=== PATIENT | female | born 1940 | race Caucasian/White ===

== ENCOUNTER 2018-07-18 13:23 | Outpatient (CLI) | payer MEDICARE, OTHER | END 2018-07-18 13:24 | disposition home or self-care (01) | LOC: BICRAD 13:23 | PROVIDERS: ATTEND Family Medicine | DX: J44.9 Chronic obstructive pulmonary disease, unspecified (principal) | CPT/HCPCS: 71046 ==

== ENCOUNTER 2019-04-19 14:49 | Outpatient (CLI) | payer MEDICARE, OTHER ==
--- NOTE | 2019-04-19 16:54 | ULT ---
ULTRASOUND RIGHT AXILLA: 04/19/2019 HISTORY: A 78-year-old female with right axillary pain and swelling. FINDINGS: The bulk of the soft tissue enlargement, of which the patient complains, is demonstrated to represent benign tissue. An incidental finding of an approximately 1.5 cm right axillary lymph node with benign fatty hilum an d thin parenchyma. Separate from this, there is an approximately 1.5 x 0.3 cm, thin, flat, hypoechoic structure without shadowing. This appears to be a small fluid collection. Comparison with the contralateral left axilla demonstrates a similar but smaller such lesion in the l eft axilla. IMPRESSION: 1. No evidence of malignancy. 2. The bulk of the right axillary enlargement represents adipose tissue. 3. Incidental finding of two thin slivers of hypoechoic lesions, perhaps tiny fluid collection, with in the bilateral axilla, one on each side, right larger than left, of uncertain etiology and signific ance. 4. If the pain persists or worsens, follow-up ultrasound of the axilla should be considered in three to six months. 5. Unrelated to the above, the patient states that she has not had a screening mammogram in years. Therefore, routine bilateral screening mammogram is recommended (unrelated to the axillary findings). POS: REGGIE
== END 2019-04-19 14:50 | disposition home or self-care (01) ==
LOC: BICULT 14:49
PROVIDERS: ATTEND Family Medicine
DX: M79.89 Other specified soft tissue disorders (principal)
CPT/HCPCS: 76999

== ENCOUNTER 2019-05-08 14:11 | Outpatient (CLI) | payer MEDICARE, OTHER ==
--- NOTE | 2019-05-11 17:06 | MMO ---
Bilateral MAMMO Bilat Screen [facility]. CLINICAL HISTORY: Patient is 78 years old and is seen for screening. The patient has the following family history of breast cancer: mother. The patient has no personal history of cancer. VIEWS: The views performed were: bilateral craniocaudal with tomosynthesis and bilateral mediolateral oblique with tomosynthesis. FILMS COMPARED: The present examination has been compared to prior imaging studies performed at MAMMOGRAM FINDINGS: There are scattered fibroglandular densities. There are no suspicious masses, suspicious calcifications, or new areas of architectural distortion. IMPRESSION: THERE IS NO MAMMOGRAPHIC EVIDENCE OF MALIGNANCY. A ROUTINE FOLLOW-UP MAMMOGRAM IN 1 YEAR IS RECOMMENDED. THE RESULTS OF THIS EXAM WERE SENT TO THE PATIENT. ACR BI-RADS Category 1 - Negative MAMMOGRAPHY NOTE: 1. A negative mammogram report should not delay a biopsy if a dominant of clinically suspicious mass is present. 2. Approximately 10% to 15% of breast cancers are not detected by mammography. 3. Adenosis and dense breasts may obscure an underlying neoplasm.
== END 2019-05-08 14:12 | disposition home or self-care (01) ==
LOC: BICMAMMO 14:11
PROVIDERS: ATTEND Family Medicine
DX: Z12.31 Encounter for screening mammogram for malignant neoplasm of breast (principal); Z80.3 Family history of malignant neoplasm of breast
CPT/HCPCS: 77063; 77067

== ENCOUNTER 2020-05-30 13:22 | Outpatient (CLI) | payer MEDICARE, OTHER ==
[~2020-05-30 13:22] MED LIST: Iopamidol-370 76% 500 ML 1 ML ONE
--- NOTE | 2020-05-30 16:34 | CT ---
CT OF THE NECK 05/30/20 HISTORY: History of left sided neck mass. TECHNIQUE: Axial CT imaging at 3 mm intervals from skull base through lung apices with IV contrast. Coronal and sagittal reformatted imaging obtained. FINDINGS: The imaged skull base appears grossly unremarkable. There is mucosal thickening involving the alveola r recess of the left maxillary sinus. The imaged lung apices demonstrate upper lobe emphysematous change. There is atherosclerotic calcification of the aortic arch and the proximal great vessels. The retroantral fat and the parapharyngeal fat appears clear bilaterally. The parotid glands are unre markable. The area of palpable concern is marked by a needle cap and is in the submandibular region on the left . In this region, the submandibular gland is noted. The left submandibular gland is larger than the r ight measuring 4.8 cm in craniocaudal dimension while the right measures 3.9 cm. There is bilateral i ntraglandular ductal dilation involving the submandibular glands bilaterally, left greater than right . There are 2-3 punctate sialoliths within the submandibular gland on the left. In addition, the subm andibular duct on the left just anterior to the left submandibular gland is slightly enhancing and th ickened. No sialolith is appreciated along the course of the submandibular duct on either side at the level of the floor of mouth. There is atherosclerotic calcification of distal CCA and proximal ICA bilaterally. Tonsillar pillars, epiglottis and pre-epiglottic fat, hyoid bone, thyroid cartilage, cricoid cartilage, and level of gl ottis appear unremarkable. The left lobe of the thyroid gland appears absent. The right lobe is prese nt and heterogeneous with hypodense nodules, which could be better assessed via thyroid ultrasound. N o lymphadenopathy is evident within the neck. The osseous structures demonstrate degenerative change within the mid cervical spine with multilevel disc space narrowing. No worrisome lytic or blastic bon e lesion. IMPRESSION: 1. In the area of palpable concern, there is an enlarged and heterogeneous left submandibular gl and. Both submandibular glands demonstrate intraglandular ductal dilation, left greater than right, a nd punctate sialoliths are seen within the left submandibular gland. In addition, the submandibular d uct at the posterior aspect of the floor of the mouth is slightly thickened and enhancing. No definit e tumor is seen in this region. This constellation of findings suggests that the patient may be havin g bouts of sialadenitis on the basis of sialolithiasis on the left. Recommend ENT consultation. 2. Abnormal appearance of the thyroid gland. Thyroid ultrasound may be beneficial. POS: JU
== END 2020-05-30 13:23 | disposition home or self-care (01) ==
LOC: BICCT 13:22
PROVIDERS: ATTEND Family Medicine
DX: K11.20 Sialoadenitis, unspecified (principal); R22.1 Localized swelling, mass and lump, neck; N18.3 Chronic kidney disease, stage 3 (moderate); R94.6 Abnormal results of thyroid function studies
CPT/HCPCS: 70491; 82565; Q9967

== ENCOUNTER 2020-07-16 12:41 | Day surgery (SDC) | payer MEDICARE, OTHER ==
[2020-07-15 13:01] VITALS: BMI 28.3
[2020-07-16] MEDS ORDERED: Lidocaine 1% PF 5 ML VIAL ONE ×2 (12:53)
--- NOTE | 2020-07-16 13:44 | ULT ---
ULTRASOUND THYROID: Date: 07/16/2020 HISTORY: 80-year-old female with multiple right thyroid nodules. One of the nodules, located at lower pole was given a TIRADS category 4, with recommendation for serial follow-up ultrasounds, but not biopsy, on the report of the thyroid ultrasound of 06/27/2020. The patient presents to the emergency Department with an order for ultrasound-guided fine-needle aspi ration biopsy. FINDINGS: As previously described, the left lobe of the thyroid gland is absent. There are several nodules in t he right lobe. Regarding the TIRADS category 4 nodule in question: Location: Lower pole right lobe posteriorly and inferiorly.: Size: 1.2 x 0.8 x 0.9 cm.. Composition: Solid: 2 points Echogenicity: Hypoechoic: 2 points Shape: Wider than tall: 0 points Margin: Smooth: 0 points Echogenic foci: None: 0 points Total points: 4 TIRADS category:ER 4: Moderately suspicious. Recommendation: FNA if greater than or equal to 1.5 cm. Follow-up if greater than or equal to 1 cm (at 1, 2, 3, and 5 years). IMPRESSION: 1) Multiple right thyroid nodules. 2) regarding the TIRADS category:4 nodule for which biopsy is requested, we again recommend serial fo llow-up ultrasounds (at 1, 2, 3, and 5 years), as originally recommended on the 06/27/2020 report, which is in accordance with TIRADS guidelines for such lesions of this size. Furthermore, its locatio n inferiorly and posteriorly for its small size would make ultrasound-guided biopsy difficult.
[2020-07-16 14:12] VITALS: BP 134/68; TEMP 98
== END 2020-07-16 13:30 | disposition home or self-care (01) ==
LOC: ULT 12:41
PROVIDERS: ATTEND Student in an Organized Health Care Education/Training Program
DX: E04.2 Nontoxic multinodular goiter (principal); E89.0 Postprocedural hypothyroidism; J44.9 Chronic obstructive pulmonary disease, unspecified; I12.9 Hypertensive chronic kidney disease with stage 1 through stage 4 chronic kidney disease, or unspecified chronic kidney disease; N18.3 Chronic kidney disease, stage 3 (moderate); F41.9 Anxiety disorder, unspecified; F32.9 Major depressive disorder, single episode, unspecified; M85.80 Other specified disorders of bone density and structure, unspecified site; K11.20 Sialoadenitis, unspecified; E66.3 Overweight; Z68.28 Body mass index [BMI] 28.0-28.9, adult; Z79.899 Other long term (current) drug therapy; Z88.0 Allergy status to penicillin; Z88.1 Allergy status to other antibiotic agents; Z88.2 Allergy status to sulfonamides
CPT/HCPCS: 76536

== ENCOUNTER 2021-08-03 06:50 | Outpatient (CLI) | payer MEDICARE | END 2021-08-03 06:51 | disposition home or self-care (01) | LOC: BICULT 06:50 | PROVIDERS: ATTEND Family Medicine | DX: E04.1 Nontoxic single thyroid nodule (principal) | CPT/HCPCS: 76536 ==

== ENCOUNTER → 2021-08-27 | Day surgery (SDC) | payer MEDICARE ==
[2021-08-26 11:15] VITALS: BMI 28.5
== END ==
LOC: ULT 12:26
PROVIDERS: ATTEND Family Medicine
PROC: 0G9H3ZX Drainage of Right Thyroid Gland Lobe, Percutaneous Approach, Diagnostic (ICD-10-PCS; principal; 2021-08-27)
DX: E04.1 Nontoxic single thyroid nodule (principal); E89.0 Postprocedural hypothyroidism; Z79.899 Other long term (current) drug therapy; Z88.0 Allergy status to penicillin; Z88.1 Allergy status to other antibiotic agents; Z88.2 Allergy status to sulfonamides; Z88.7 Allergy status to serum and vaccine; Z88.8 Allergy status to other drugs, medicaments and biological substances
CPT/HCPCS: 60100; 76942; 88173

== ENCOUNTER 2022-07-22 11:22 | Outpatient (CLI) | payer OTHER | END 2022-07-22 11:23 | disposition home or self-care (01) | LOC: BICRAD 11:22 | PROVIDERS: ATTEND Family Medicine | DX: R05.8 Other specified cough (principal); R60.0 Localized edema | CPT/HCPCS: 71046 ==